=== PATIENT | female | born 1990 | race Two or more races ===

== ENCOUNTER 2025-08-11 17:46 | Emergency (ER) | payer BC, MEDICAID, SELFPAY ==
[2025-08-11 18:23] VITALS: BP 147/100; PULSE 95; RESP 18; TEMP 36.6; O2SAT 98; BMI 38.7
--- NOTE | 2025-08-11 18:47 | XR_ITS ---
Examination: CT brain head without contrast. 2-D sagittal coronal reconstructions Date and time of exam: August 11, 2025, 1922 hours INDICATIONS: Headaches dizziness beginning today CTDI: vol (mGy): 49.4 DLP: (mGycm): 975 Technique: Multiple CT axial sections of the brain have been obtained, 5 mm slice thickness. Contrast has not been administered. 2-D sagittal, coronal reconstructions have been obtained Low dose protocols were performed. One or more of the following dose reduction techniques were used; automated exposure control, adjustment of the mA and/or KV according to patient size, use of iterative reconstruction technique. Findings: No significant ventricular enlargement. Intra-axial or extra-axial hemorrhage density is not seen. No mass effect or midline shift Basal cisterns are not remarkable. Fourth ventricle is midline. Cranial vault intact. Impression: Negative for acute hemorrhage, mass effect or midline shift Advise clinical correlation and follow-up accordingly
--- NOTE | 2025-08-11 18:47 | XR_ITS ---
EXAMINATION: PA chest single view TECHNIQUE: Upright PA chest single view Date and time: August 11, 2025, 1859 hours, comparison September 03, 2009 INDICATIONS: Chest pain today. FINDINGS: Mild prominence left ventricle No pneumonia or pulmonary edema Osseous structures are intact IMPRESSION: No active disease
--- NOTE | 2025-08-11 18:47 | EKG_ITS ---
[facility] Test Date: 2025-08-11 Pat Name: DOUGLAS DOMINGUEZ Department: Room: - Gender: Female [employer] Liaison: : 1990 Requested By: Bc Ontiveros Order Number: [id number] Reading MD: Bc Ontiveros Measurements Intervals [place] Rate: 90 P: -9 OK: 108 QRS: -10 QRSD: 98 T: -14 QT: 353 QTc: 434 Interpretive Statements SINUS RHYTHM WITH SINUS ARRHYTHMIA WITH SHORT OK INTERVAL NONSPECIFIC T-WAVE ABNORMALITY Compared to ECG 03/22/2024 08:13:57 Short OK interval now present T-wave abnormality now present Sinus tachycardia no longer present /store/S0/[id number]/ecg/[id number].pdf
--- NOTE | 2025-08-11 18:48 | PD.EDRME ---
Rapid Medical Screening Exam [facility] Arrival date/time: 08/11/25 17:46 35F with history of HTN and DM presents to ED with 1 day of RICHARDSON, dizziness, loss of balance, and some L shoulder pain. Patient does have anxiety and once told this at PCP, she started getting heart palps. Chief Complaint: Headache Vital signs: Vital Signs Temperature 97.9 F 08/11/25 18:23 Pulse Rate 95 08/11/25 18:23 Respiratory Rate 18 08/11/25 18:23 Blood Pressure 147/100 H 08/11/25 18:23 Pulse Oximetry (%) 98 08/11/25 18:23 Exam: Normal pupili response and EOM. Clear lungs. RRR. Light sensitivity. Clinical Impression: Migraine vs anxiety vs brain bleed vs ACS vs joint pain
[2025-08-11] MEDS: SUMAtriptan INJ 6 MG/0.5 ML VIAL SC (19:17)
[2025-08-11] MEDS: METOCLOPRAMIDE 5 MG TABLET 10 MG PO (19:18)
[2025-08-11 19:19] LABS: Basophils # (Auto) 0.1 Thou/mm3 (0.0-0.2); Basophils % (Auto) 1 % (0-2.5); Eosinophils # (Auto) 0.3 Thou/mm3 (0.0-0.5); Eosinophils % (Auto) 2 % (0-10); Hematocrit 44.6 % (36.0-46.0); Hemoglobin 15.3 g/dL (12.0-16.0); Immature Granulocytes Auto 0.04 Thou/mm3 (0.00-0.00); Lymphocytes # (Auto) 3.9 Thou/mm3 (1.0-4.8); Lymphocytes % (Auto) 34 % (10-50); Mean Corpuscular HGB Conc 34.3 g/dl (31.0-37.0); Mean Corpuscular Hemoglobin 28.5 pg (25.0-35.0); Mean Corpuscular Volume 83 fL (80-100); Monocytes # (Auto) 0.8 Thou/mm3 (0.0-0.8); Monocytes % (Auto) 7 % (0-12); Neutrophils # (Auto) 6.2 Thou/mm3 (1.8-7.7); Neutrophils % (Auto) 55 % (37-80); Nucleated Red Blood Cell # 0.00 Thou/mm3 (0.00-0.00); Nucleated Red Blood Cell % 0 /100 WBC (0); Platelet Count 357 Thou/mm3 (140-440); RDW Standard Deviation 41.2 fL (36.4-46.3); Red Blood Count 5.37 Miln/mm3 (4.00-5.20); White Blood Count 11.3 Thou/mm3 (3.6-11.0)
[2025-08-11 19:34] LABS: Alanine Aminotransferase 61 U/L (10-49); Albumin, Serum 4.9 gm/dL (3.5-5.0); Albumin/Globulin Ratio 1.8 (1.2-2.2); Alkaline Phosphatase 71 U/L (46-116); Anion Gap 12 (7-16); Aspartate Amino Transferase 46 U/L (0-34); BUN/Creatinine Ratio 9 Ratio (12-20); Bilirubin,Total 0.7 mg/dL (0.3-1.2); Blood Urea Nitrogen 6 mg/dL (9-23); Calcium 9.9 mg/dL (8.3-10.6); Calcium (Corrected) 9.9 mg/dL (8.5-10.1); Carbon Dioxide 25.3 mMol/L (20.0-31.0); Chloride 104 mMol/L (98-107); Creatinine (Component) 0.7 mg/dL (0.6-1.3); Estimated Creatinine Clearance 126.1 mL/min (>60); Globulin 2.8 gm/dL (2.3-3.5); Glucose 171 mg/dL (74-106); Osmolality,Calculated 282 (275-295); Potassium 4.4 mMol/L (3.4-5.1); Sodium 141 mMol/L (136-145); Total Protein 7.7 gm/dL (5.7-8.2); Troponin I < 0.002 ng/mL (0.0-0.045); eGFR > 60 See Note
[2025-08-11 19:54] LABS: Collection Type, Urine Clean Catch
[2025-08-11 20:06] LABS: HCG Qualitative,Urine Negative
[2025-08-11 20:08] LABS: Bacteria,Urine Rare; Bilirubin,Urine Negative (Negative); Blood,Urine Negative (Negative); Clarity,Urine Clear (Clear/Hazy); Color,Urine Lt-Yellow (Lt Yel-Yel); Culture Indicated,Urine Not Indicated; Glucose, Urine Trace (Negative); Hyaline Casts,Urine < 1 /hpf (0-1); Ketones,Urine 2+ (Negative); Leukocyte Esterase,Urine Negative (Negative); Nitrite,Urine Negative (Negative); PH,Urine 6.0 (5.0-7.0); Protein,Urine Trace (Neg - Trace); RBC,Urine 3 /hpf (0-3); Specific Gravity,Urine 1.017 (1.001-1.035); Squamous Epithelial Cell,Urine 9 /hpf (0-5); Urobilinogen,Urine Negative mg/dL (0.0-1.0); WBC,Urine 1 /hpf (0-5)
[2025-08-11 22:05] VITALS: BP 149/105; PULSE 87; RESP 18; TEMP 36.8; O2SAT 98
--- NOTE | 2025-08-11 23:59 | PD.EDHA ---
ED Headache RME/HPI General Chief Complaint: Headache Stated Complaint: RICHARDSON, DIZZINESS, SHAKINESS, L SHOULDER PAIN Arrival date/time: 08/11/25 17:46 RME / HPI RME / HPI Narrative: 08/11/25 17:46 35F with history of HTN and DM presents to ED with 1 day of RICHARDSON, dizziness, loss of balance, and some L shoulder pain. Patient does have anxiety and once told this at PCP, she started getting heart palps. Dr. Dsouza?s Main ED Evaluation: 35yo female with a history of HTN presents to the ED for a chief complaint of headache x 1 day. Patient states she feels like her blood pressure is still high despite taking her labetalol once a day. Patient states her head feels hypersensitive and does not like the way labetalol makes her feel. Patient reports associated dizziness. Patient denies any chest pain, shortness of breath, or any other associated symptoms. NKA. Related Data Home Medications ?Medication ?Instructions ?Recorded ?Confirmed vits no.124-ferrous fum 1 tab PO QDAY 03/21/23 04/12/23 27 mg iron-folic acid 800 mcg tablet ( Vitamin) Previous Rx's ?Medication ?Instructions ?Recorded amlodipine 10 mg tablet 10 mg PO QDAY #30 tabs 08/12/25 Allergies Allergy/AdvReac Type Severity Reaction Status Date / Time No Known Allergies Allergy Verified 04/12/23 02:28 Review of Systems Review of Systems Systems Reviewed: All systems reviewed, normal except as documented Past Medical History Past Medical History NEUROLOGIC: Negative Neurological Disorders CARDIAC: Positive Cardiac Disorders and Hypertension; Negative Congestive Heart Failure RESPIRATORY: Negative Chronic Obstructive Pulmonary Disease (COPD) GASTROINTESTINAL: Positive Gastrointestinal Disorders and Obesity GENITOURINARY: Negative Genitourinary Disorders or Renal Disease REPRODUCTIVE: Positive Previous Pregnancies; Negative Pelvic Inflammatory Disease MUSCULOSKELETAL: Negative Musculoskeletal Disorders ENDOCRINE: Positive Endocrine Disorders and Diabetes Mellitus Type 2; Negative Diabetes Mellitus Type 1 HEMATOLOGIC: Positive Blood Disorders and Anemia OTHER HISTORY: Positive Blood Transfusions; Negative Autoimmune Disease, Blood Transfusion Reaction, Anesthesia Reactions, MRSA, Clostridium Difficile or Cancer Family History FAMILY HISTORY: Positive Family Cardiac Disorders and Family Cancer; Negative Family Surgery or Family Anesthesia Reaction Social History SMOKING STATUS: Never smoker ED Exam Narrative Physical exam: Generally patient is alert in no obvious distress, head is normocephalic atraumatic, eyes pupils equal round reactive to light, neck shows no nuchal rigidity, heart regular rate and rhythm, chest shows no reproducible chest wall tenderness, lungs clear to auscultation equal bilaterally, abdomen is obese soft bowel sounds present also nontender neurologic exam shows no focal motor or sensory deficits cranial nerves II through XII grossly intact without ataxia Course Quality Measures none Orders Category Date Time Status EKG (ED ONLY) *Do not use* NOW Care 08/11/25 18:[address] head/brain wo con Stat Exams 08/11/25 18:47 Completed EKG (ED Only) Stat Exams 08/11/25 18:47 Draft XR chest 1V portable Stat Exams 08/11/25 18:47 Completed CBC Stat Lab 08/11/25 18:54 Completed Comprehensive Metabolic Panel Stat Lab 08/11/25 18:54 Completed HCG Qualitative,Urine Stat Lab 08/11/25 19:10 Completed Troponin I Stat Lab 08/11/25 18:54 Completed Urinalysis, C/S if Indicated Stat Lab 08/11/25 19:10 Completed Metoclopramide [Reglan] Med 08/11/25 18:47 Discontinued 10 mg PO X1 ONE SUMAtriptan INJ [Imitrex Inj] Med 08/11/25 18:47 Discontinued 6 mg SC X1 ONE Vital Signs Vital signs: Vital Signs Temperature 97.9 F 08/11/25 18:23 Pulse Rate 95 08/11/25 18:23 Respiratory Rate 18 08/11/25 18:23 Blood Pressure 147/100 H 08/11/25 18:23 Pulse Oximetry (%) 98 08/11/25 18:23 Headache MDM Narrative MDM Narrative:: Scribe Attestation: 08/11/25 Gisselle Staton am scribing for and in the presence of Dr. Dsouza. I interpreted all labs. EKG is nonischemic. Troponin is not elevated. Head CT is negative. I believe that the patient has poorly controlled hypertension with a blood pressure 149/105 upon arrival to be the cause of the patient's condition. She no longer wants to take the labetalol. She may stop the labetalol. Norvasc as prescribed. She does have primary care follow-up. Return to ER as needed or if condition worsens. Patient data External records reviewed:: [facility] previous records (Per chart review, patient was seen here on 03/22/24 for heat exhaustion.) Clinical information provided by:: patient Social determinants that could affect healthcare access:: none Patient has the following chronic illnesses:: DM, HTN How is presenting disease/condition affected by chronic disease/condition?: uneffected by Evaluation data The following diagnostics were reviewed and interpreted by me:: lab results, radiology exam(s) and EKG tracing(s) Lab and/or radiology exams considered but not ordered:: none Interpretation Summary: [facility] Report Signed Patient: DOUGLAS DOMINGUEZ. Record#: [id number] Birthdate: 1990 Age/Sex: 35 / F Location: [facility] Attending Dr: Ordering Physician: Bc Ontiveros PA-C Date of Service: 08/11/25 Procedure(s): XR chest 1V portable Accession Number(s): [id number] cc: Yoseph Stack MD; Lucas Greenfield MD; Bc Ontiveros PA-C~ EXAMINATION: PA chest single view TECHNIQUE: Upright PA chest single view Date and time: August 11, 2025, 1859 hours, comparison September 03, 2009 INDICATIONS: Chest pain today. FINDINGS: Mild prominence left ventricle No pneumonia or pulmonary edema Osseous structures are intact IMPRESSION: No active disease Dictated By: Lucas Greenfield MD Signed By: <Electronically signed by Lucas Greenfield MD in OV> 08/11/25 2210 [facility] Signed Patient: DOUGLAS DOMINGUEZ [facility]. Record#: [id number] Birthdate: 1990 Age/Sex: 35 / F Location: [facility] Attending Dr: Ordering Physician: Bc Ontiveros PA-C Date of Service: 08/11/25 Procedure(s): CT head/brain wo con Accession Number(s): [id number] cc: Yoseph Stack MD; Lucas Greenfield MD; Bc Ontiveros PA-C~ Examination: CT brain head without contrast. 2-D sagittal coronal reconstructions Date and time of exam: August 11, 2025, 1922 hours INDICATIONS: Headaches dizziness beginning today CTDI: vol (mGy): 49.4 DLP: (mGycm): 975 Technique: Multiple CT axial sections of the brain have been obtained, 5 mm slice thickness. Contrast has not been administered. 2-D sagittal, coronal reconstructions have been obtained Low dose protocols were performed. One or more of the following dose reduction techniques were used; automated exposure control, adjustment of the mA and/or KV according to patient size, use of iterative reconstruction technique. Findings: No significant ventricular enlargement. Intra-axial or extra-axial hemorrhage density is not seen. No mass effect or midline shift Basal cisterns are not remarkable. Fourth ventricle is midline. Cranial vault intact. Impression: Negative for acute hemorrhage, mass effect or midline shift Advise clinical correlation and follow-up accordingly Dictated By: Lucas Greenfield MD Signed By: <Electronically signed by Lucas Greenfield MD in OV> 08/11/25 5543 Medications / Prescriptions Medications or Prescriptions considered but not ordered:: none Medication administrations:: Medication Administration History Discontinued Medications Metoclopramide HCl (Metoclopramide 5 Mg Tablet) 10 mg PO X1 ONE Stop: 08/11/25 18:48 Last Admin: 08/11/25 19:18 Dose: 10 mg Documented By: HOME Sumatriptan Succinate (Sumatriptan Inj 6 Mg/0.5 Ml Vial) 6 mg SC X1 ONE Stop: 08/11/25 18:48 Last Admin: 08/11/25 19:17 Dose: 6 mg Documented By: HOME see above Consultations Consultation(s) initiated? (list below): No Diagnosis Differential diagnosis headache: other (See MDM) Most likely diagnosis given after review of the tests above:: see clinical impression below Admission Indicated Admission indicated?: not indicated Admission Request Was there a request for admission?: No Disposition Plan Disposition Plan: Discharge Discharge Attestation Discharge Attestation: The patient and all family members were given an opportunity to ask questions and understood the discharge instructions. Discharge instructions specifically effects, indications for sooner follow up or return to the emergency department, and the expected course of current diagnosis. Patient condition: Stable Discharge Plan Plan Patient Disposition: HOME (Self Care) Prescriptions/Referrals Prescriptions/Med Rec: New amlodipine 10 mg tablet 10 mg PO QDAY Qty: 30 0RF No Action Vitamin 27 mg iron- 800 mcg Tablet 1 tab PO QDAY Referrals: Yoseph Stack MD [Primary Care Provider, Family Practice] - In 1 week Problem List Clinical Impression: Poorly-controlled hypertension Patient/Caregiver Discharge Instructions Education Materials: ED Hypertension, Established Additional Instructions: Stop the labetalol. Amlodipine as prescribed. Follow-up with your doctor. Return to ER as needed or if condition worsens. Print Language: Divehi Stand Alone Forms: Judi Award Info., Patient Portal Info Letter
== END 2025-08-12 00:33 | disposition home or self-care (01) ==
PROVIDERS: Physician Assistant; Emergency Provider Emergency Medicine; PCP Family Medicine
DX: I10 Essential (primary) hypertension (principal); I49.8 Other specified cardiac arrhythmias; R51.9 Headache, unspecified; R42 Dizziness and giddiness; R07.9 Chest pain, unspecified
CPT/HCPCS: 36415; 70450; 71045; 80053; 81001; 81025; 84484; 85025; 93005; 99283; J3030; A9270